=== PATIENT | female | born 1995 | race Caucasian/White ===

== ENCOUNTER 2021-09-15 11:05 | Emergency (ER) | payer OTHER ==
[2021-09-15 11:14] VITALS: BP 138/71; PULSE 119; RESP 18; TEMP 98.1
[2021-09-15] MEDS ORDERED: LIDOCAINE 1% INJ 10MG/ML (5 ML VIAL-PF) SQ ONE (11:32)
--- NOTE | 2021-09-15 12:06 | ED ---
Wound/Laceration HPI - General Chief Complaint: Wound/Laceration Stated Complaint: Finger Lac/[facility] Time Seen by Provider: 09/15/21 11:30 Source: patient Mode of arrival: ambulatory Limitations: no limitations - History of Present Illness Initial Comments: Patient is a 26-year-old female presenting with chief complaint of laceration to the finger. Patient states she was trying to open a box at work with scissors when they slipped and cut her left third finger. Patient is on Eliquis for portal vein thrombosis, she states she is having difficulty controlling the bleeding. At time of presentation bleeding is under control, however the laceration requires sutures. She denies any numbness, tingling, weakness, loss of range of motion. - Related Data Allergies Allergy/AdvReac Type Severity Reaction Status Date / Time No Known Allergies Allergy Verified 09/15/21 11:14 Review of Systems ROS Statement: Those systems with pertinent positive or pertinent negative responses have been documented in the HPI. ROS Other: All systems not noted in ROS Statement are negative. Past Medical History Additional Past Medical History / Comment(s): crohns History of Any Multi-Drug Resistant Organisms: None Reported Past Surgical History: Appendectomy Additional Past Surgical History / Comment(s): cholectomy with ileostomy, APR Past Psychological History: No Psychological Hx Reported Smoking Status: Never smoker Past Alcohol Use History: None Reported Past Drug Use History: None Reported General Exam Limitations: no limitations General appearance: alert, in no apparent distress Head exam: Present: atraumatic, normocephalic, normal inspection Eye exam: Present: normal appearance, EOMI. Absent: scleral icterus, periorbital swelling Neck exam: Present: normal inspection Neurological exam: Present: alert, oriented X3, CN II-XII intact Psychiatric exam: Present: normal affect, normal mood Skin exam: Present: warm, dry, normal color. Absent: rash Expanded Type of lesion: Present: laceration (2 cm flap laceration to the left third finger) Course Vital Signs 09/15/21 11:07 Temperature 98.1 F Pulse Rate 119 H Respiratory 18 Rate Blood Pressure 138/71 O2 Sat by Pulse 100 Oximetry Procedures - Laceration Laceration #1 Consent Obtained: verbal consent Indication: laceration Site: hand Description: flap Depth: simple, single layer Anesthetic Used: lidocaine 1%, without epi Anesthesia Technique: local infiltration Amount (mls): 1 Pre-repair: wound explored, irrigated extensively Type of Sutures: nylon Size of Sutures: 5-0 Number of Sutures: 2 Technique: simple, interrupted Patient Tolerated Procedure: well Medical Decision Making - Medical Decision Making Patient is a 26-year-old female presenting with chief complaint of laceration to the left third digit, this was obtained at work while trying to open a box with her scissors. Patient has difficulty controlling the bleeding due to being on Eliquis, however at this time bleeding is well controlled. The wound is a 2 cm flap laceration at the distal end of the third digit. It was repaired using 2 simple interrupted sutures 5-0 nylon. Patient is up-to-date on her tetanus. Educated on signs of infection. Follow-up with PCP. Sutures may be removed in 10-14 days. Report back to ER if any new or worsening symptoms. Discussed return parameters answered all questions. Patient conveyed verbal understanding and agreed to the plan. My attending is Dr. Swenosn. Disposition Clinical Impression: Laceration Disposition: HOME SELF-CARE Condition: Good Instructions (If sedation given, give patient instructions): Finger Laceration (ED) Additional Instructions: Follow-up with PCP. Report back to ER with any new or worsening symptoms. Sutures may be removed in 10-14 days, this can be done here in the ER, your PCP, or local urgent care. Monitor for signs of infection, including but not limited to redness, swelling, discharge, warmth, pain, fever, chills, difficulty moving the finger. Is patient prescribed a controlled substance at d/c from ED?: No Referrals: Nonstaff,Physician [Primary Care Provider] - 1-2 days Time of Disposition: 12:06
== END 2021-09-15 12:15 | disposition home or self-care (01) ==
LOC: EC 11:05
DX: Y99.9 Unspecified external cause status (principal); W26.8XXA Contact with other sharp object(s), not elsewhere classified, initial encounter
CPT/HCPCS: 12001; 99282; J2001